=== PATIENT | male | born 1935 | race Caucasian/White ===

== ENCOUNTER → 2017-02-05 | Outpatient (CLI) | payer MEDICARE | END | disposition home or self-care (01) | LOC: PCVCCLINIC 15:25 | PROVIDERS: ATTEND Internal Medicine Cardiovascular Disease | DX: I25.10 Atherosclerotic heart disease of native coronary artery without angina pectoris (principal); I10 Essential (primary) hypertension; R07.89 Other chest pain; E78.5 Hyperlipidemia, unspecified; Z95.1 Presence of aortocoronary bypass graft; Z79.82 Long term (current) use of aspirin; Z79.899 Other long term (current) drug therapy | CPT/HCPCS: 80061; 93005; G0463 ==

== ENCOUNTER → 2017-02-16 | Outpatient (CLI) | payer MEDICARE ==
[~2017-02-16] MED LIST: REGADENOSON 0.4 MG/5 ML DISP.SYRIN. IV ONE
--- NOTE | 2017-02-16 14:17 | PCVCIMAG ---
APPROVED REPORT Exam: Nuclear Stress Test Indication: Dyspnea , Chest pain Patient Location: Out-Patient Stress Nurse: Diana White RN, Krystyna Walker RN CO Tech:Isabelle Muñizhbun [facility] Ht: 5 ft 11 in Wt: 200 lbs BSA: 2.11 m2 HR: 61 bpm BP: 181/79 mmHg BMI: 27.8 Rhythm: NSR Medical History Medical History: Hyperlipidemia, HTN, CAD, Diabetic Insulin, Age Medications: Norvasc, lipitor, prinivil, prilosec Allergies: No known drug allergies Previous Cardiac Procedures: CABG Pretest Chest Pain Characteristics: No chest pain Physical Disabilities: Back NM EXAM: Myocardial Perfusion REST/STRESS Imaging Protocol: Rest Tc-99m/Stress Tc-99m 1 day Resting Data Rest SPECT myocardial perfusion imaging was performed in supine position 45 minutes following the intravenous injection of 10.9 mCi of Tc-99m Sestamibi. Time of rest injection: 0900 Date: 02/16/2017 Pharmacologic Stress Pharmacologic stress test was performed by injecting Regadenoson 0.4 mg IV push followed by the intravenous injection of 34.9 mCi of Tc-99m Sestamibi. Time of stress injection: 1020 Date: 02/16/2017 Gated Stress SPECT was performed 45 minutes after stress injection. The images were gated to evaluate regional wall motion and calculate left ventricular ejection fraction. Study Quality Study: Good Study Data Post stress, the left ventricular ejection was 76%.. SSS: 0 SRS: 0 SDS: 0 TID = 0.88. Perfusion No evidence of stress induced ischemia or prior myocardial infarction. Wall Motion Normal left ventricular size and function with no regional wall motion abnormalities. Nuclear Conclusion No evidence of stress induced ischemia or prior myocardial infarction. Normal left ventricular size and function with no regional wall motion abnormalities. Post stress, the left ventricular ejection was 76%.. No prior study available for comparison. Interpreted by: Willard Lira MD Electronically Approved: 02/16/2017 14:16:40 Stress Test Details Stress Test: Pharmacologic stress testing performed using 0.4 mg of regadenoson per 5 mL given IV over 10 seconds. Reason for pharmacologic stress test: physical limitation. HR Resting HR: 61 bpmMax Heart Rate (APMHR): 139 bpm Max HR Achieved: 64 bpmTarget HR (85% APMHR): 118 bpm % of APMHR: 46 Recovery HR: 67 bpm BP Resting BP: 181/79 mmHg Max BP: 179/79 mmHg Recovery BP: 152/67 mmHg ECG Resting ECG: Sinus Rhythm Stress ECG: Sinus Rhythm ST Change: Nondiagnostic resting ST abnormalities Recovery ECG: Sinus Rhythm Recovery ST Change: None Recovery Arrhythmia: None, APC Clinical Reason for Termination: Completed protocol Stress Symptoms: Dyspnea, Light-headed Exercise duration: 0 min 55 sec Stress ECG Conclusion ECG: Non-ischemic Clinical: Non-ischemic <Conclusion> ECG: Non-ischemic Clinical: Non-ischemic
--- NOTE | 2017-02-16 17:46 | PCVCIMAG ---
APPROVED REPORT Study performed: 02/16/2017 08:12:58 EXAM: Comprehensive 2D, Doppler, and color-flow Echocardiogram Patient Location: Echo lab Status: routine Other Information Study Quality: Fair Risk Factors: Cardiac Risk Factors: HTN Indications CABG, HTN, HYPERLIPIDEMIA, CAROTID ARTERY DISEASE 2D Dimensions IVSd: 9.78 (7-11mm)LVOT Diam: 18.43 (18-24mm) LVDd: 38.48 mm PWd: 9.21 (7-11mm)Ascending Ao: 33.40 (22-36mm) LVDs: 25.02 (25-40mm) Left Atrium: 35.78 (27-40mm) Aortic Root: 25.02 mm LV Single Plane 4CH: 55.84 % LV Single Plane 2CH: 63.87 %Paige's LVEF: 59.85 % Biplane EF: 59.7 % Volumes Left Atrial Volume (Systole) Single Plane 4CH: 42.50 mLSingle Plane 2CH: 44.34 mL Aortic Valve AoV Peak Pedro.: 1.80 m/s AO Peak Gr.: 13.09 mmHgLVOT Max P.50 mmHg LVOT Max V: 1.17 m/s LATOYA Vmax: 1.74 cm2 Mitral Valve E/A Ratio: 1.0 MV Decel. Time: 183.50 ms MV E Max Pedro.: 1.16 m/s MV A Pedro.: 1.11 m/s IVRT: 79.58 ms Pulmonary Valve PV Peak Gr.: 3.58 mmHg Pulmonary Vein P Vein S: 0.52 m/sP Vein A: 0.25 m/s P Vein D: 0.56 m/sP Vein A Dur.: 72.7 msec P Vein S/D Ratio: 0.93 Tricuspid Valve TR Peak Pedro.: 2.64 m/s TR Peak Gr.: 27.88 mmHg Left Ventricle The left ventricle is normal size. There is normal LV segmental wall motion. There is normal left ventricular wall thickness. Left ventricular systolic function is normal. The left ventricular ejection fraction is within the normal range. LVEF is 55-60%. The left ventricular diastolic function is normal. Right Ventricle The right ventricle is normal size. The right ventricular systolic function is normal. Atria The left atrium size is normal. The right atrium size is normal. Aortic Valve The aortic valve is normal in structure. Trace aortic regurgitation. There is no aortic valvular stenosis. Mitral Valve The mitral valve is normal in structure. There is no mitral valve regurgitation noted. No evidence of mitral valve stenosis. Tricuspid Valve The tricuspid valve is normal in structure. Trace tricuspid regurgitation. Pulmonary artery pressure measures 35 mmhg. Pulmonic Valve The pulmonary valve is normal in structure. There is no pulmonic valvular regurgitation. Great Vessels The aortic root is normal in size. IVC is normal in size and collapses with >50% inspiration Pericardium There is no pericardial effusion. <Conclusion> The left ventricle is normal size. There is normal left ventricular wall thickness. Left ventricular systolic function is normal. The left ventricular ejection fraction is within the normal range. LVEF is 55-60%. The left ventricular diastolic function is normal. The right ventricle is normal size. The left atrium size is normal. The aortic valve is normal in structure. The mitral valve is normal in structure. The aortic root is normal in size. There is no pericardial effusion.
== END | disposition home or self-care (01) ==
LOC: PCVCIMAG 08:23
PROVIDERS: ATTEND Internal Medicine Cardiovascular Disease
DX: R07.9 Chest pain, unspecified (principal); E78.00 Pure hypercholesterolemia, unspecified; I10 Essential (primary) hypertension; I25.10 Atherosclerotic heart disease of native coronary artery without angina pectoris; E11.9 Type 2 diabetes mellitus without complications; Z79.4 Long term (current) use of insulin
CPT/HCPCS: 78452; 93017; 93306; A9500; J2785

== ENCOUNTER → 2017-10-02 | Outpatient (CLI) | payer MEDICARE | END | disposition home or self-care (01) | LOC: PCVCCLINIC 12:44 | DX: I25.810 Atherosclerosis of coronary artery bypass graft(s) without angina pectoris (principal); I10 Essential (primary) hypertension; E78.5 Hyperlipidemia, unspecified; R09.89 Other specified symptoms and signs involving the circulatory and respiratory systems; R94.31 Abnormal electrocardiogram [ECG] [EKG]; Z95.1 Presence of aortocoronary bypass graft; Z98.890 Other specified postprocedural states; Z79.899 Other long term (current) drug therapy; Z79.82 Long term (current) use of aspirin | CPT/HCPCS: 80061; 93005; G0463 ==

== ENCOUNTER → 2017-10-02 | Outpatient (CLI) | payer MEDICARE | END | disposition home or self-care (01) | LOC: PCVCIMAG 14:06 | DX: I65.23 Occlusion and stenosis of bilateral carotid arteries (principal); I25.810 Atherosclerosis of coronary artery bypass graft(s) without angina pectoris; I10 Essential (primary) hypertension; E78.5 Hyperlipidemia, unspecified; R09.89 Other specified symptoms and signs involving the circulatory and respiratory systems; R94.31 Abnormal electrocardiogram [ECG] [EKG]; Z98.890 Other specified postprocedural states; Z95.1 Presence of aortocoronary bypass graft; Z79.899 Other long term (current) drug therapy; Z79.82 Long term (current) use of aspirin | CPT/HCPCS: 80061; 93005; 93880; G0463 ==

== ENCOUNTER → 2018-04-16 | Outpatient (CLI) | payer MEDICARE ==
--- NOTE | 2018-04-16 16:57 | PCVCIMAG ---
EXAM: BILATERAL SUPERFICIAL VENOUS DUPLEX INDICATION: Leg pain and swelling. FINDINGS: Right leg: No thrombus in the common femoral, main femoral, or popliteal veins. These veins are compressible. Right Great Saphenous Vein: At the saphenofemoral junction the diameter is 7.2 mm, in the mid thigh it is 5.4 mm, and in the calf it is 4.7 mm. There is not significant venous insufficiency/reflux throughout. Venous insufficiency/reflux duration is 0 seconds. Right Small Saphenous Vein: At the saphenopopliteal junction the diameter is 1.7 mm, and in the calf it is 0.4 mm. There is not significant venous insufficiency/reflux throughout. Venous insufficiency/reflux duration is 0 seconds. There is not a cranial extension present. Left leg: No thrombus in the common femoral, main femoral, or popliteal veins. These veins are compressible. Left Great Saphenous Vein: Surgically absent. Left Small Saphenous Vein: At the saphenopopliteal junction the diameter is 2.4 mm, and in the calf it is 1.0 mm. There is not significant venous insufficiency/reflux throughout. Venous insufficiency/reflux duration is 0 seconds. There is not a cranial extension present. IMPRESSION: Right Great Saphenous Vein: No significant venous insufficiency/reflux is present as noted above. Right Small Saphenous Vein: No significant venous insufficiency/reflux is present as noted above. Left Great Saphenous Vein: Surgical absence. Left Small Saphenous Vein: No significant venous insufficiency/reflux is present as noted above. If leg swelling persists further evaluation of the IVC and iliac veins with intravascular ultrasound may be helpful. LOC:OFFICE
--- NOTE | 2018-04-16 17:04 | PCVCIMAG ---
EXAM: BILATERAL LOWER EXTREMITY ARTERIAL DUPLEX INDICATION: Peripheral Arterial Disease. Leg pain. Nonhealing ulcers both lower legs right greater than left. FINDINGS: Right Leg: Common femoral and profunda femoral arteries are patent. Increased systolic velocity 343 cm/s distal superficial femoral artery consistent with 80% stenosis. The popliteal artery is patent. Short segmental occlusion anterior tibial artery. The posterior tibial and peroneal arteries are patent. Left Leg: Common femoral and profunda femoral arteries are patent. Increased systolic velocity 263 cm/s proximal/mid superficial femoral artery consistent with 60% stenosis. The popliteal artery is patent. 50% stenosis of the tibioperoneal trunk. Occlusion of the distal anterior tibial artery. The peroneal and posterior tibial arteries are patent. IMPRESSION: 80% stenosis distal [place] right superficial femoral artery. Short segment occlusion origin right anterior tibial artery. 60% stenosis proximal/mid [place]vas[place] left superficial femoral artery. 50% stenosis left tibioperoneal trunk. Occlusion distal left anterior tibial artery. LOC:OFFICE
== END | disposition home or self-care (01) ==
LOC: PCVCIMAG 15:41
PROVIDERS: ATTEND Emergency Medicine
DX: I65.23 Occlusion and stenosis of bilateral carotid arteries (principal); I73.9 Peripheral vascular disease, unspecified
CPT/HCPCS: 93925; 93970

== ENCOUNTER → 2018-04-22 | Outpatient (CLI) | payer MEDICARE | END | disposition home or self-care (01) | LOC: PCVCCLINIC 13:54 | PROVIDERS: ATTEND Internal Medicine Cardiovascular Disease | DX: I73.9 Peripheral vascular disease, unspecified (principal); E78.5 Hyperlipidemia, unspecified; I10 Essential (primary) hypertension; I25.10 Atherosclerotic heart disease of native coronary artery without angina pectoris; Z95.1 Presence of aortocoronary bypass graft | CPT/HCPCS: 36415 ==

== ENCOUNTER → 2018-04-26 | Outpatient (CLI) | payer MEDICARE ==
[~2018-04-26] MED LIST changes: +CLOPIDOGREL BISULFATE 75 MG TABLET ONE; +DIAZEPAM 10 MG TABLET. ONE; +EPTIFIBATIDE BOLUS 2,000 MCG/ML 10ML VIAL. IV ONE; +HEPARIN SODIUM 5,000 UNIT/ML VIAL for PCVC. ONE; +IODIXANOL 270 MG/ML 100 ML VIAL. ONE; +IV NORMAL SALINE 500ML BAG 500 ML ONE; +LIDOCAINE 1%/EPI 1:100,000 20 ML VIAL. ONE; +MIDAZOLAM HCL/PF 2 MG/2 ML VIAL. ONE; -REGADENOSON 0.4 MG/5 ML DISP.SYRIN. IV ONE; +WATER FOR INJECTION,STERILE 20 ML VIAL. IJ ONE; +ceFAZolin SODIUM 1 GM VIAL ONE; +fentaNYL PF VIAL 100 MCG/2 ML VIAL ONE
--- NOTE | 2018-04-26 13:28 | PCVCINTER ---
EXAM: 1. AORTOGRAM AND BILATERAL LOWER EXTREMITY RUNOFF ANGIOGRAM 2. BILATERAL RENAL ANGIOGRAPHY 3. RIGHT SUPERFICIAL FEMORAL ARTERY ATHERECTOMY. 4. SECONDARY THROMBECTOMY RIGHT SUPERFICIAL FEMORAL ARTERY. 5. DRUG COATED BALLOON ANGIOPLASTY RIGHT SUPERFICIAL FEMORAL ARTERY. INDICATION: Peripheral arterial disease. Nonhealing ulcer right lower extremity. Hypertension. Renal atherosclerosis. No prior catheter based angiographic study is available. A full diagnostic angiogram study is performed today and the decision to intervene is based on this diagnostic study. PROCEDURE: Procedure and risks of angiography intervention is appropriate including limb loss stroke and were discussed with the patient's family and consent obtained. The patient's left groin was prepped in the normal sterile fashion. IV conscious sedation was used throughout procedure with appropriate monitoring from 11:00 AM through 12:00 PM. Ultrasound was used to interrogate the left groin and showed the left common femoral artery to be patent. A permanent spot film was obtained. Under ultrasound guidance access into the left common femoral artery was obtained and a 5 Welsh sheath was placed. Through this a 5 Welsh flush catheter was placed into the abdominal aorta at the level of the renal arteries and AP aortogram was performed. Catheter was positioned at the aortic bifurcation and both oblique views of the pelvis were obtained. Catheter was positioned into the left external iliac artery and left leg runoff angiography was performed. Catheter was exchanged for a visceral catheter was placed into the right renal arteries and right renal angiograms obtained. Catheter was placed into the the left renal arteries and left renal angiograms were obtained. Catheter was advanced to the level of the right external iliac artery and right leg runoff angiography was obtained. Patient was given 4500 units of heparin. A 6 Welsh crossover sheath was placed via the left groin to the level of the right common femoral artery. Atherectomy of the right superficial femoral artery was performed with 2.0 mm [employer] laser atherectomy catheter in the standard fashion. Following atherectomy small areas of thrombus were observed and because of this secondary thrombectomy throughout the right superficial femoral artery was carried out with mechanical suction thrombectomy catheter in the standard fashion. Minimal debris was removed. Following this drug coated balloon angioplasty of the right superficial femoral artery was carried out with a 6 x 40 [employer] Heart It María Elena Rayo RN STAFF catheter. Follow-up angiogram was performed. Catheters and wires removed. Sheath was removed and hemostasis obtained using the FISH device. No immediate complications. FINDINGS: Aortogram: There is one right and one left renal artery. Mild plaque infrarenal abdominal aorta without significant stenosis. Pelvis: Scattered plaque right and left common and external iliac arteries without significant stenosis. Both internal iliac arteries are patent. The right and left common femoral and profunda femoral arteries are patent. Right renal artery: Minimal scattered plaque proximal vessel does not cause significant stenosis. Left renal artery: Minimal scattered plaque proximal vessel does not cause significant stenosis. Right le-80% stenosis distal [place] superficial femoral artery.. Popliteal artery is patent. The posterior tibial and peroneal arteries show adequate patency throughout. Mild stenosis proximal anterior tibial artery with 70% stenosis mid anterior tibial artery. The dorsalis pedis and plantar arteries are satisfactory. Left leg: Scattered plaque throughout the superficial femoral artery and popliteal artery without significant stenosis. The tibioperoneal trunk, posterior tibial artery, peroneal artery show satisfactory patency throughout. High-grade stenosis proximal anterior tibial artery with multiple high-grade stenoses mid and distal anterior tibial artery. The dorsalis pedis is diminutive in size. Plantar arteries are satisfactory. Right superficial femoral artery: Following procedure as above vessel shows good patency. IMPRESSION: Focal distal [place] right superficial femoral artery stenosis was treated as above with good patency restored. No significant left superficial femoral artery or popliteal artery stenosis. Bilateral anterior tibial artery stenoses as detailed above. LOC:[id number]
== END | disposition home or self-care (01) ==
LOC: PCVCINTER 11:56
PROVIDERS: ATTEND Nuclear Medicine Nuclear Cardiology
DX: I70.238 Atherosclerosis of native arteries of right leg with ulceration of other part of lower leg (principal); L97.818 Non-pressure chronic ulcer of other part of right lower leg with other specified severity; I70.1 Atherosclerosis of renal artery; I70.292 Other atherosclerosis of native arteries of extremities, left leg; I70.0 Atherosclerosis of aorta; I10 Essential (primary) hypertension
CPT/HCPCS: 36252; 37186; 37225; 75716; 76937; 99152; 99153; C1725; C1751; C1757; C1760; C1769; C1885; C1894; C2623; J0690; J1644; J2250; J3010; J3490; J7040; Q9966; J1327

== ENCOUNTER → 2018-08-11 | Outpatient (CLI) | payer MEDICARE ==
--- NOTE | 2018-08-11 09:02 | PCVCIMAG ---
EXAM: BILATERAL CAROTID DUPLEX INDICATION: Carotid Occlusive Disease. FINDINGS: Doppler Measurements (centimeters per second): RIGHT: Peak CCA-102, Peak ECA-110, Diastolic ICA-16, Peak ICA-121, ICA/CCA Ratio-1.2. LEFT: Peak CCA-103, Peak ECA-132, Diastolic ICA-16, Peak ICA-145, ICA/CCA Ratio-1.4. RIGHT CAROTID: The carotid bulb has moderate plaque. The proximal internal carotid artery shows <40% stenosis. The common carotid artery shows no significant stenosis. The external carotid artery shows no significant stenosis. LEFT CAROTID: The carotid bulb has moderate plaque. The proximal internal carotid artery shows 40-50% stenosis. The common carotid artery shows no significant stenosis. The external carotid artery shows 40% stenosis. Antegrade flow in both vertebral arteries. IMPRESSION: <40% stenosis of the right internal carotid artery with moderate plaque. 40-50% stenosis of the left internal carotid artery with moderate plaque. Little overall change since October 2017. LOC:[id number]
--- NOTE | 2018-08-11 09:37 | PCVCIMAG ---
EXAM: RIGHT LOWER EXTREMITY ARTERIAL DUPLEX INDICATION: Peripheral Arterial Disease. Leg pain. FINDINGS: Right Leg: Common femoral and profunda femoral arteries are patent. Superficial femoral artery and popliteal artery are patent. Previous sites of intervention mid/distal superficial femoral artery maintaining satisfactory patency. Mild stenosis proximal anterior tibial artery. The peroneal and posterior tibial arteries are patent. IMPRESSION: No flow limiting stenosis in the right lower extremity. LOC:[id number]
== END | disposition home or self-care (01) ==
LOC: PCVCIMAG 08:28
PROVIDERS: ATTEND Nuclear Medicine Nuclear Cardiology
DX: I65.23 Occlusion and stenosis of bilateral carotid arteries (principal); I25.810 Atherosclerosis of coronary artery bypass graft(s) without angina pectoris; I73.9 Peripheral vascular disease, unspecified; E78.00 Pure hypercholesterolemia, unspecified; E11.9 Type 2 diabetes mellitus without complications; I10 Essential (primary) hypertension; E78.5 Hyperlipidemia, unspecified; Z79.4 Long term (current) use of insulin; Z95.1 Presence of aortocoronary bypass graft; Z98.890 Other specified postprocedural states
CPT/HCPCS: 36415; 80061; 93005; 93880; 93926; G0463

== ENCOUNTER → 2019-04-12 | Outpatient (CLI) | payer MEDICARE ==
--- NOTE | 2019-04-12 08:59 | PCVCIMAG ---
APPROVED REPORT Laterality: Bilateral Indications Stenosis Doppler Spectral Velocity Analysis PSV / EDVPSV / EDV ECA (R) 100 / 2 cm/sECA (L) 149 / 9 cm/s dICA (R) 75 / 18 cm/sdICA (L) 97 / 24 cm/s Mary (R) 73 / 18 cm/smICA (L) 115 / 18 cm/s pICA (R) 116 / 18 cm/spICA (L) 102 / 21 cm/s Bulb (R) 76 / 12 cm/sBulb (L) 125 / 16 cm/s dCCA (R) 100 / 14 cm/sdCCA (L) 94 / 14 cm/s mCCA (R) 90 / 12 cm/smCCA (L) 107 / 16 cm/s Vert (R) 37 / 9 cm/sVert (L) 102 / 16 cm/s ICA/CCA 1.16ICA/CCA 1.22 Findings The right carotid bulb has moderate calcified plaque. The right proximal internal carotid artery shows <40% stenosis. The right common carotid artery shows no significant stenosis. The right external carotid artery shows no significant stenosis. The left carotid bulb has moderate calcified plaque. The left proximal internal carotid artery shows 40-50% stenosis. The left common carotid artery shows no significant stenosis. The left external carotid artery shows no significant stenosis. Conclusion 1. Right internal carotid artery stenosis (<40%) 2. Left internal carotid artery stenosis (40-50%) 3. Antegrade vertebral flow Similar to a study dated August 11, 2018.
--- NOTE | 2019-04-12 10:23 | PCVCIMAG ---
EXAM: RIGHT LOWER EXTREMITY ARTERIAL DUPLEX INDICATION: Peripheral Arterial Disease. Leg pain. FINDINGS: Right Leg: Common femoral profunda femoral arteries are patent. Mild increased slight velocity 317 cm/s from 164 cm/s in the distal [place] superficial femoral artery at previous site of intervention consistent with 60% restenosis. Popliteal artery is patent. Mild stenosis proximal anterior tibial artery. Peroneal and posterior tibial arteries are patent. IMPRESSION: 60% restenosis distal [place] right superficial femoral artery previous site of intervention. Mild stenosis proximal right anterior tibial artery. LOC:[id number]
== END | disposition home or self-care (01) ==
LOC: PCVCIMAG 08:38
PROVIDERS: ATTEND Internal Medicine Cardiovascular Disease
DX: I65.23 Occlusion and stenosis of bilateral carotid arteries (principal); I73.9 Peripheral vascular disease, unspecified; I77.9 Disorder of arteries and arterioles, unspecified; I25.810 Atherosclerosis of coronary artery bypass graft(s) without angina pectoris; E78.00 Pure hypercholesterolemia, unspecified; E08.00 Diabetes mellitus due to underlying condition with hyperosmolarity without nonketotic hyperglycemic-hyperosmolar coma (NKHHC); Z95.1 Presence of aortocoronary bypass graft; Z98.890 Other specified postprocedural states
CPT/HCPCS: 36415; 80061; 93005; 93880; 93926; G0463